=== PATIENT | female | born 1955 | race Asian ===

== ENCOUNTER 2025-05-18 22:22 | Emergency (ER) | payer OTHER, MEDICAID ==
[~2025-05-18] VITALS: Ht 157.5 cm; Wt 57.1 kg
[2025-05-18 22:50] VITALS: TEMP 98.3
[2025-05-18] MEDS: diphenhdrAMINE HCL 50 MG/1 ML VL IV ONE (22:55)
[2025-05-18] MEDS: FAMOTIDINE (10MG/ML) 2ML VL IV ONE (22:55)
[2025-05-19] MEDS ORDERED: PRED20TA2 PO (00:10)
--- NOTE | 2025-05-19 00:11 | ED.PDOC ---
HPI Allergic reaction HPI Comments 70-year-old female complaining of itching and swelling to her face in her body. States she ate white 5th for friend 3 hours ago. Started feeling itching, she took two Benadryl and noticed no improvement. Started having swelling around her face in her lips in her eyes. No prior history of allergies. Chief Complaint: Allergic Reaction Time Seen by MD: 22:31 Reviewed Notes: Nurses Notes Allergies: Coded Allergies: NO KNOWN ALLERGIES (Unverified , 05/18/25) Information Source: Patient Mode of Arrival: Ambulatory Past Medical History PAST MEDICAL HISTORY: Denies Surgical History: Denies all surgeries ANALYTICAL CHEMIST History: No Pertinent ANALYTICAL CHEMIST History Constitutional: denies: chills, diaphoresis, fatigue, fever, malaise, sweats, weakness, others EENTM: reports: eye redness; denies: blurred vision, double vision, ear bleeding, ear discharge, ear drainage, ear pain, ear ringing, eye pain, hearing loss, mouth pain, mouth swelling, nasal discharge, nose bleeding, nose congestion, nose pain, photophobia, tearing, throat pain, throat swelling, voice changes, others Respiratory: denies: cough, hemoptysis, orthopnea, SOB at rest, shortness of breath, SOB with excertion, stridor, wheezing, others Cardiovascular: denies: chest pain, dizzy spells, diaphoresis, Dyspnea on exer tion, edema, irregular heart beat, left arm pain, lightheadedness, palpitations, PND, syncope, others Gastrointestinal: denies: abdomen distended, abdominal pain, blood streaked bowels, constipated, diarrhea, dysphagia, difficulty swallowing, hematemesis, melena, nausea, poor appetite, poor fluid intake, rectal bleeding, rectal pain, vomiting, others Genitourinary: denies: abnormal vagina bleeding, burning, dyspareunia, dysuria, flank pain, frequency, hematuria, incontinence, pain, , vagina discharge, urgency, others Neurological: denies: dizziness, fainting, headache, left sided numbness, left sided weakness, numbness, paresthesia, pre-existing deficit, right sided numbness, right sided weakness, seizure, speech problems, tingling, tremors, weakness, others Musculoskeletal: denies: back pain, gout, joint pain, joint swelling, muscle pain, muscle stiffness, neck pain, others Integumetry: reports: rash; denies: bruises, change in color, change in hair/nails, dryness, laceration, lesions, lumps, wounds, others Allergic/Immunocompromised: denies: Difficulty Healing, Frequent Infections, Hives, Itching, others Endocrine: denies: excessive hunger, excessive sweating, excessive thirst, excessive urination, flushing, intolerance to cold, intolerance to heat, unexplained weight gain, unexplained weight loss, others Psychiatric: denies: anxiety, bipolar disorder, depression, hopeless, panic disorder, schizophrenia, sleepless, suicidal, others Physical Exam General Appearance: No Apparent Distress, Normal HEENT: Eye Lid (L) (Swelling), Eye Lid (R) (Swelling), Normal ENT Inspection, Pharynx Normal, TMs Normal, Other (Swelling to the upper and lower lips) Neck: Full Range of Motion, Non-Tender, Normal, Normal Inspection Respiratory: Chest Non-Tender, Lungs Clear, No Accessory Muscle Use, No Respiratory Distress, Normal Breath Sounds Cardiovascular: No Edema, No JVD, No Murmur, No Gallop, Normal Peripheral Pulses, Regular Rate/Rhythm Breast Exam: Deferred Gastrointestinal: No Organomegaly, Non Tender, No Pulsatile Mass, Normal Bowel Sounds, Soft Genitalia: Deferred Pelvic: Deferred Rectal: Deferred Extremities: No calf tenderness, Normal capillary refill, Normal inspection, Normal range of motion, Non-tender, No pedal edema Musculoskeletal : Apperance: Normal Neurologic: Alert, coil winder strap II-XII nml as Tested, No Motor Deficits, Normal Affect, Normal Mood, No Sensory Deficits Cerebellar Function: Normal Reflexes: Normal Skin: Dry, Normal Color, Warm Lymphatic: No Adenopathy Was a procedure done? Was a procedure done?: No Differential diagnosis (all) Differential Diagnosis: Anaphylaxis, Angioedema, Drug Reaction, Hypotension X-Ray, Labs, Meds, VS Vital Signs Date Time Temp Pulse Resp B/P (MAP) Pulse Ox O2 Delivery O2 Flow Rate FiO2 05/18/25 22:50 98.3 116 20 132/71 (91) 96 98.3 05/18/25 22:50 Room Air* 0 21 Current Medications Medications (Trade) Dose Ordered Sig/Roes Route Start Time Stop Time Status Last Admin Dexamethasone Sodium Phosphate (Decadron Injection) 10 mg ONCE ONCE IV 05/18/25 22:45 05/18/25 22:46 DC 05/18/25 22:55 Famotidine (Pepcid Injection) 20 mg ONCE ONCE IV 05/18/25 22:45 05/18/25 22:46 DC 05/18/25 22:55 Diphenhydramine HCl (Benadryl Injection) 25 mg ONCE ONCE IV 05/18/25 22:45 05/18/25 22:46 DC 05/18/25 22:55 Epinephrine HCl 0.3 mg ONCE ONCE IM 05/18/25 22:45 05/18/25 22:46 DC 05/18/25 22:55 X-Ray, Labs, Meds, VS Comment Imaging: X-rays and CT scans were reviewed and interpreted by this provider, imaging shows no fractures and no pathological disease. Pending radiology review. Laboratory: Labs reviewed and interpreted by this provider. No significant abnormalities noted. Patient has prior medical visits reviewed. Med reconciliation performed Vital signs reviewed Time of 1ST Reevaluation: 00:11 Reevaluation 1ST: Improved Patient Education/Counseling: Diagnosis, Treatment, Prognosis, Need For Follow Up (Follow up with PCP next available appointment. Return to emergency department if symptoms worsen.) Family Education/Counseling: Diagnosis SEPSIS Sepsis Screen Date sepsis recognized/suspect: May 18, 2025 Time Sepsis recognized/suspect: 2222 Recent Procedure: No On Antibiotic Therapy: No Respiratory Rate >20: No Heart Rate >90: Yes Temp<36 C (96.8 F) or >38.3 C: No SBP <90 or MAP <65 mmHG: No New Acute Mental Status Change: No Is the patient on CPAP, BIPAP,: No Vital Signs Date Time Temp Pulse Resp B/P (MAP) Pulse Ox O2 Delivery O2 Flow Rate FiO2 05/18/25 22:50 98.3 116 20 132/71 (91) 96 98.3 05/18/25 22:50 Room Air* 0 21 Medications Medications Dose Ordered Sig/Rose Route Start Time Stop Time Status Last Admin Dose Admin Dexamethasone Sodium Phosphate 10 mg ONCE ONCE IV 05/18/25 22:45 05/18/25 22:46 DC 05/18/25 22:55 Diphenhydramine HCl 25 mg ONCE ONCE IV 05/18/25 22:45 05/18/25 22:46 DC 05/18/25 22:55 Epinephrine HCl 0.3 mg ONCE ONCE IM 05/18/25 22:45 05/18/25 22:46 DC 05/18/25 22:55 Famotidine 20 mg ONCE ONCE IV 05/18/25 22:45 05/18/25 22:46 DC 05/18/25 22:55 Departure 1 Departure Time of Disposition: 00:09 Impression: Primary Impression: Angioedema Qualified Codes: T78.3XXA - Angioneurotic edema, initial encounter Disposition: HOME / SELF CARE / HOMELESS Condition: Fair e-Prescriptions Prednisone (Prednisone) 20 Mg Tab 20 MG PO DAILY for 5 Days, #5 MG Prov: KORI HENNING 05/19/25 Discharged With: Self Critical Care Note Critical Care Time?: No Stability Stability form required: No Heart Score Heart Score: Heart Score Response (Comments) Value History N/A 0 EKG N/A 0 Age N/A 0 Risk Factors N/A 0 Troponin N/A 0 Total 0 KORI HENNING May 19, 2025 00:11
[2025-05-19 00:23] VITALS: BP 126/83; PULSE 86; RESP 18; O2SAT 97
== END 2025-05-19 00:26 | disposition home or self-care (01) ==
LOC: ER 22:22
DX: T78.3XXA Angioneurotic edema, initial encounter (principal); Z79.899 Other long term (current) drug therapy
CPT/HCPCS: 96372; 96374; 96375; 99284; J0169; J1100; J1200; J3490